=== PATIENT | male | born 1980 | race Caucasian/White ===

== ENCOUNTER 2021-03-06 10:40 | Emergency (ER) | payer OTHER ==
[2021-03-06 10:46] VITALS: PULSE 72; TEMP 97
--- NOTE | 2021-03-06 11:27 | CT ---
EXAMINATION TYPE: CT brain wo con DATE OF EXAM: 03/06/2021 COMPARISON: None HISTORY: Head injury. possible LOC CT DLP: 1092.4 mGycm. Automated Exposure Control for Dose Reduction was Utilized. TECHNIQUE: CT scan of the head is performed without contrast. FINDINGS: There is no acute intracranial hemorrhage, mass effect, or midline shift identified. The ventricles and sulci are within normal limits in size. The globes are intact and the visualized sin uses are clear. IMPRESSION: No acute intracranial hemorrhage, mass effect, or midline shift is seen.
[2021-03-06] MEDS ORDERED: ONDANSETRON ODT 4 MG TAB PO STA (11:32)
[2021-03-06] MEDS ORDERED: ONDANSETRON 4 MG ODT STARTER PACK 2 TAB BTL PO STA (11:56)
--- NOTE | 2021-03-06 11:56 | ED ---
Head Injury HPI - General Chief complaint: Head Injury Stated complaint: Concusion Time Seen by Provider: 03/06/21 10:50 Source: patient, RN notes reviewed Mode of arrival: ambulatory Limitations: no limitations - History of Present Illness Initial comments: 40-year-old male presents emergency Department chief complaint of a head injury. 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 Patient states he landed backwards on his head states that he believes he loss conscious. He states that he started refereeing further but that did not feel well and left ice. Patient states he has some headache, nausea no blurred vision no focal weakness denies any blood thinners no neck or back pain. Patient did have a helmet on. - Related Data Home Medications Medication Instructions Recorded Confirmed No Known Home Medications 03/06/21 03/06/21 Allergies/Adverse reactions: Allergies Allergy/AdvReac Type Severity Reaction Status Date / Time No Known Allergies Allergy Verified 03/06/21 11:12 Review of Systems ROS Statement: Those systems with pertinent positive or pertinent negative responses have been documented in the HPI. ROS Other: All systems not noted in ROS Statement are negative. Past Medical History Past Medical History: No Reported History History of Any Multi-Drug Resistant Organisms: None Reported Past Surgical History: No Surgical Hx Reported Past Psychological History: No Psychological Hx Reported Smoking Status: Current some day smoker Past Alcohol Use History: Occasional Past Drug Use History: None Reported General Exam Limitations: no limitations General appearance: alert, in no apparent distress Head exam: Present: atraumatic, normocephalic, normal inspection Eye exam: Present: normal appearance, PERRL, EOMI. Absent: scleral icterus, conjunctival injection, periorbital swelling ENT exam: Present: normal exam, normal oropharynx, mucous membranes moist Neck exam: Present: normal inspection, full ROM. Absent: tenderness, meningismus, lymphadenopathy Respiratory exam: Present: normal lung sounds bilaterally. Absent: respiratory distress, wheezes, rales, rhonchi, stridor Cardiovascular Exam: Present: regular rate, normal rhythm, normal heart sounds. Absent: systolic murmur, diastolic murmur, rubs, gallop, clicks Neurological exam: Present: alert, oriented X3, CN II-XII intact, reflexes normal, other (Finger to nose intact). Absent: motor sensory deficit Course Vital Signs 03/06/21 10:42 Temperature 97 F L Pulse Rate 72 Respiratory 15 Rate Blood Pressure 145/102 O2 Sat by Pulse 97 Oximetry Medical Decision Making - Medical Decision Making Patient CT is unremarkable. Patient does have mild concussion symptoms. Patient advised not to participate sports activity until cleared. Patient will be discharged stable condition return parameters were discussed. Disposition Clinical Impression: Concussion Disposition: HOME SELF-CARE Condition: Stable Instructions (If sedation given, give patient instructions): Concussion (ED) Additional Instructions: Please return to the Emergency Department if symptoms worsen or any other concerns. Is patient prescribed a controlled substance at d/c from ED?: No Referrals: None,Stated [Primary Care Provider] - 1-2 days Time of Disposition: 11:55
[2021-03-06 12:06] VITALS: BP 144/98; RESP 18
== END 2021-03-06 12:04 | disposition home or self-care (01) ==
LOC: EC 10:40
DX: S06.0X9A Concussion with loss of consciousness of unspecified duration, initial encounter (principal); F17.200 Nicotine dependence, unspecified, uncomplicated; W22.8XXA Striking against or struck by other objects, initial encounter
CPT/HCPCS: 99283; 70450; S0119